=== PATIENT | female | born 1975 | race Caucasian/White ===

== ENCOUNTER 2019-10-18 10:00 | Outpatient (RCR) | payer BC, SELFPAY ==
[2019-09-18 15:05] VITALS: BP_SYST 90
--- NOTE | 2019-09-18 16:30 | PTOPEVAL ---
Thank you for referring Kusum Aceves to [facility]. Please review, sign, date and return this plan of care ELICIA. Pt referred to therapy due to left shoulder pain and restrictions. She demonstrates decreased shoulder range, shoulder and scapular strength, soft tissue restriction and impaired UE function with ADL's. She requires additional skilled PT 2x/wk x 8 wk. I agree with and certify that the following plan of care is medically necessary. 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 She had pain for a long time. She would have numbness, acheness and abnormal sensation of left UE. 6 months ago she started having left UE pain and symptoms. She purchased a TENS unit in Apr for the pain. By end of June she was having severe pain. She was seen by a chiro for neck adjustments which did help and isolate the pain into her shoulder. She started doing stretching, then released her arm was not moving in normal range. she reports limitations with reaching overhead and behind back. Denies problem with lifting and carrying at waist level, but has difficulty with lifting overhead. She normally sleeps on her left side. Does not perform resistance or cardio p
[2019-10-18 10:03] VITALS: BP_SYST 63
--- NOTE | 2019-10-18 10:43 | PTOPEVAL ---
Thank you for referring Kusum Aceves to [facility]. Please review, sign, date and return this plan of care ELICIAJohn Pt has received 9 therapy visits since 09/18/19 to address left shoulder impairments. She demonstrates a decline or limited progress with shoulder function, shoulder strength or range. Therapy services do not appear to be improving her impairments. She demonstrates signs and symptoms consistent with possible internal derangement of shoulder joint with adhesive capsulitis. She requires additional testing by the doctor to determine cause of limitations. Will hold therapy services at this time. I agree with and certify that the following plan of care is medically necessary. Referring Physician Date Attending Provider: Eleazar Mei MD Physical Therapy re-assessment *PT Outpatient Evaluation Start: 09/18/19 15:11 Freq: Status: Active Protocol: Document 10/18/19 10:03 DMITRI (Rec: 10/18/19 10:41 [facility] [email or web address]) Therapy Assessment Status Assessment Status Assessment Status Re-evaluation Outpatient Past Medical History Past Medical History No Past Medical/Surgical History Patient/Family Denies Significant Past Medical/ Surgical History Source of Past Medical History Patient Evaluation Information Problem Diagnosis left shoulder pain Onset 10 years ago Cause fall 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 10 years she slipped on steps and grabed the railing with the arm. She had pain for a long time. She would have numbness, acheness and abnormal sensation of left UE. Subjective Information She continues to have shoulder Query Text:As Reported By Patient/ pain at rest and with Family activities. She will have occasional sharp shooting pain for unknown reason. She is taking medication to assist with sleep, but will wake with increased pain depending on the position. She cont to feel the shoulder is very limited with range with continued pain. She does feel the ant chest opens easier and improved neck stretch. She reports continued limitations with reaching overhead and behind
--- NOTE | 2019-11-15 10:41 | PCPTNOTE ---
Admitting Provider: Attending Provider: Eleazar Mei MD Patient:Kusum Aceves Date of :1975 Discharge Note Patient has not returned for any further treatments since 10/18/2019, therefore she will be discharged at this time. Patient?s initial visit was on 09/18/2019 15:00 and (he/she) had a total of 9 visits. Pt was instructed on her last re-assessment visit to return to her doctor due to limited progress and continued impairments. The goals have been not met. Thank you for referring this patient to [facility]. Please review, sign, date and return this discharge summary ELICIA. I have been updated about the patient's current status and I agree with discharge from the above service at this time. Referring Physician Date
== END 2019-11-16 12:49 | disposition home or self-care (01) ==
LOC: ANHPT 10:00
PROVIDERS: Visit Provider Orthopaedic Surgery
DX: M25.512 Pain in left shoulder (principal)
CPT/HCPCS: 97035; 97110; 97140; 97161

== ENCOUNTER 2019-10-27 15:12 | Outpatient (CLI) | payer BC, SELFPAY ==
--- NOTE | ~2019-10-27 | MM_ITS ---
EXAMINATION: MM screening [facility] BI w breana HISTORY: Screening mammogram TECHNIQUE: Craniocaudal and mediolateral oblique 3-D tomosynthesis images were obtained and synthetic 2-D images were generated. CAD analysis was submitted and interpreted. COMPARISON: 07/20/2018, 06/01/2017, 05/13/2016 BREAST PARENCHYMAL COMPOSITION: The breasts are heterogeneously dense, which may obscure small masses . FINDINGS: RIGHT BREAST: There is no evidence of suspicious mass, calcification, or architectural distortion to suggest malignancy. There has been no significant interval change. LEFT BREAST: An asymmetry is present in the posterior third of the breast best appreciated 10 cm from the nipple on mediolateral oblique tomosynthesis image 14/54. IMPRESSION: 1. Right breast asymmetry on the mediolateral oblique view. 2. Additional mammographic views and possible breast ultrasound are recommended. BI-RADS Category 0: Incomplete: Needs additional imaging evaluation. Reviewed, dictated and finalized at location A. IMPRESSION: 1. Right breast asymmetry on the mediolateral oblique view. 2. Additional mammographic views and possible breast ultrasound are recommended . BI-RADS Category 0: Incomplete: Needs additional imaging evaluation.
== END 2019-10-27 15:13 | disposition home or self-care (01) ==
LOC: ANHIMG 15:21
PROVIDERS: PCP Obstetrics & Gynecology; Visit Provider Obstetrics & Gynecology
DX: Z12.31 Encounter for screening mammogram for malignant neoplasm of breast (principal); R92.8 Other abnormal and inconclusive findings on diagnostic imaging of breast
CPT/HCPCS: 77063; 77067

== ENCOUNTER 2019-10-29 10:33 | Outpatient (CLI) | payer BC, SELFPAY ==
--- NOTE | ~2019-10-29 | MR_ITS ---
EXAMINATION: MR shoulder LT wo con DATE: 10/29/2019 11:58 INDICATION: Left shoulder pain. TECHNIQUE: Magnetic resonance imaging (MRI) of the left shoulder was performed without intravenous co ntrast. Sequences included axial PD-weighted FS FSE, coronal oblique PD-weighted FS FSE and T2-weight ed FS FSE, and sagittal oblique T2-weighted FS FSE and T1-weighted FSE. COMPARISON: Left shoulder radiographs 09/11/2019 FINDINGS: Coracoacromial arch: The acromion undersurface is curved in morphology (type II). There is mild acromioclavicular joint os teoarthritis. There is mild subacromial/subdeltoid bursitis. Rotator cuff: There is severe supraspinatus tendinopathy and mild infraspinatus tendinopathy. Teres minor tendon is normal. There is mild subscapularis tendinopathy. No tear. There is no asymmetric fatty atrophy of t he rotator cuff muscle bellies. Biceps tendon and glenoid labrum: Biceps tendon is in bicipital groove. Intra-articular biceps tendon is normal. There is degeneration of the superior glenoid labrum without well-defined tear. Fluid: There is no glenohumeral joint effusion. Bones/cartilage: Glenoid cartilage is normal. Humeral head cartilage is normal. IMPRESSION: 1. Severe rotator cuff tendinopathy. No tear. 2. Mild subacromial/subdeltoid bursitis. 3. Mild acromioclavicular joint osteoarthritis. Reviewed, dictated and finalized at location A.
== END 2019-10-29 10:34 | disposition home or self-care (01) ==
PROVIDERS: PCP Obstetrics & Gynecology; Visit Provider Orthopaedic Surgery
DX: M75.52 Bursitis of left shoulder (principal); M19.012 Primary osteoarthritis, left shoulder
CPT/HCPCS: 73221

== ENCOUNTER 2019-11-21 11:23 | Outpatient (CLI) | payer BC, SELFPAY ==
--- NOTE | ~2019-11-21 | MMUS_ITS ---
EXAMINATION: MM diagnostic mammo unilat RT, US breast RT complete HISTORY: Follow-up right breast asymmetry TECHNIQUE: Additional 3-D tomosynthesis images of the right breast were performed and synthetic 2-D i mages were generated. CAD analysis was submitted and interpreted. High resolution right breast ultras ound was performed. COMPARISON: 10/27/2019 BREAST PARENCHYMAL COMPOSITION: The breasts are extremely dense, which lowers the sensitivity of mamm ography. FINDINGS: MAMMOGRAPHIC FINDINGS: There are no suspicious masses, calcifications or architectural distortion in the right breast to sug gest malignancy. ULTRASOUND: Right breast ultrasound: At 6:00 there is a 2 mm cyst. At 9:00, 3 cm from the nipple, there is a 5 mm cyst. At 10:00, 6 cm fro m the nipple, there is an oval benign-appearing hypoechoic mass with internal septations, measuring u p to 6 mm. There is parallel orientation, no significant posterior features and no internal vasculari ty. This may represent a cluster of microcysts. At 11:00, 7 cm from the nipple, there is a small 2 mm cyst. IMPRESSION: 1. No mammographic or sonographic evidence for malignancy in the right breast. 2. Routine yearly screening mammogram and regular clinical breast examination are recommended. BI-RADS Category 2: Benign finding(s). Reviewed, dictated and finalized at location A. IMPRESSION: 1. No mammographic or sonographic evidence for malignancy in the right breast. 2. Routine yearly screening mammogram and regular clinical breast examination a re recommended. BI-RADS Category 2: Benign finding(s).
== END 2019-11-21 11:24 | disposition home or self-care (01) ==
PROVIDERS: PCP Obstetrics & Gynecology; Visit Provider Obstetrics & Gynecology
DX: R92.8 Other abnormal and inconclusive findings on diagnostic imaging of breast (principal)
CPT/HCPCS: 76641; 77065

== ENCOUNTER 2019-11-29 02:38 | Outpatient (CLI) | payer BC, SELFPAY ==
[2019-11-29 18:39] LABS: SARS-CoV-2 RNA PCR Negative
== END 2019-11-29 02:39 | disposition home or self-care (01) ==
LOC: ANHCOVIDDT 02:38
PROVIDERS: PCP Obstetrics & Gynecology; Visit Provider Orthopaedic Surgery
DX: Z01.812 Encounter for preprocedural laboratory examination (principal); Z20.828 Contact with and (suspected) exposure to other viral communicable diseases
CPT/HCPCS: 87635; C9803; U0003

== ENCOUNTER 2019-11-29 08:34 | Outpatient (CLI) | payer BC, SELFPAY ==
[2019-11-29 09:18] LABS: Hematocrit 34.6 % (37.0-47.0); Hemoglobin 11.9 g/dL (12.0-15.0); Mean Corpuscular HGB Conc 34.4 g/dl (32-36); Mean Corpuscular Hemoglobin 32.4 pg (26-34); Mean Corpuscular Volume 94.3 fl (80-100); Mean Platelet Volume 9.9 fl (7.4-10.4); Platelet Count Result 197 k/mm3 (150-375); Red Blood Count 3.67 M/mm3 (4.2-5.4); Red Cell Distribution Width 11.8 % (11.5-14.5)
[2019-11-29 10:09] LABS: Vitamin D 25 Hydroxy 47.9 ng/mL
[2019-11-29 11:08] LABS: Alanine Aminotransferase 12 U/L (4-35); Albumin Level 4.3 g/dL (3.5-5.1); Alkaline Phosphatase 40 U/L (38-126); Anion Gap 6 mmol/L (8-16); Aspartate Amino Transferase 21 U/L (14-36); Bilirubin,Total 0.2 mg/dL (0.2-1.3); Blood Urea Nitrogen 17 mg/dL (7-17); Calcium 9.1 mg/dL (8.4-10.2); Carbon Dioxide 28 mmol/L (22-30); Chloride 107 mmol/L (98-107); Estimated Glomerular Filt Rate > 60; Glucose 84 mg/dL (65-105); Potassium 4.1 mmol/L (3.4-5.0); Sodium 141 mmol/L (137-145)
[2019-11-29 12:59] LABS: Folic Acid 5.3 ng/mL (2.76->20)
[2019-12-02 12:36] LABS: Vitamin B1 10 nmol/L (8-30)
== END 2019-11-29 08:35 | disposition home or self-care (01) ==
PROVIDERS: PCP Obstetrics & Gynecology
DX: R63.4 Abnormal weight loss (principal); R53.83 Other fatigue; E66.01 Morbid (severe) obesity due to excess calories; D64.9 Anemia, unspecified; K91.2 Postsurgical malabsorption, not elsewhere classified; Z98.84 Bariatric surgery status
CPT/HCPCS: 36415; 80053; 82306; 82607; 82728; 82746; 84425; 84443; 85027

== ENCOUNTER 2019-12-01 00:38 | Day surgery (SDC) | payer BC, SELFPAY ==
[2019-11-15 08:10] VITALS: BMI 25.8
[2019-12-01] VITALS (7 sets, daily range): BP systolic 101–135; BP diastolic 65–83; PULSE 73–100; RESP 11–16; TEMP 36.4–37.3; O2SAT 98–100
--- NOTE | 2019-12-01 07:14 | WPDHPUPDATE1 ---
History and Physical Update Update Date/Time: 12/01/19 07:14 History and Physical has been reviewed, including an updated exam of the patient. There are NO changes in the patient's condition. Risks, benefits, and alternatives have been discussed and questions answered. Patient agrees to proceed with procedure.
[2019-12-01] MEDS: LACTATED RINGERS 1,000 ML 30 ML IV CONT ×2 (11:00→14:52)
[2019-12-01] MEDS: ACETAMINOPHEN 500 MG TABLET 1000 MG PO (11:07)
[2019-12-01] MEDS: KETOROLAC 15 MG/ML VIAL (*BKC) IV PUSH (11:08)
--- NOTE | 2019-12-01 11:16 | WPDANESEPPF ---
Anes - Initial Pre Proc Eval Procedure: Operation Date: 12/01/19 12:30 Proposed Procedures p Left Shoulder Arthroscopic Subacromial Decompression - Eleazar Mei MD Date/Time: 12/01/19 11:16 Surgeon: Eleazar Mei MD Pre Op Diagnosis: Left Shoulder Subacromial Tendonitis Patient Data Age: 44 Gender: F Height: 5 ft 6 in Weight: 71.3 kg Allergies Allergy/AdvReac Type Severity Reaction Status Date / Time Sulfa (Sulfonamide Allergy Unknown Hives Verified 12/01/19 11:13 Antibiotics) Home Medications Medication Instructions Recorded Confirmed Type hihtvglgfp-pneoiqapwguuo-lxxcitdf 1 cap PO Q8H PRN 09/11/19 12/01/19 History 50 mg-300 mg-40 mg capsule cholecalciferol (vitamin D3) 125 125 mcg PO DAILY 09/11/19 12/01/19 History mcg (5,000 unit) capsule multivitamin 1 cap PO DAILY 09/11/19 12/01/19 History sertraline 100 mg tablet 100 mg PO DAILY 09/11/19 12/01/19 History sertraline 50 mg tablet 50 mg PO DAILY 09/11/19 12/01/19 History cyclobenzaprine 10 mg tablet 10 mg PO TID PRN #30 tablet 09/27/19 12/01/19 Rx hydrocodone 5 mg-acetaminophen 325 1 - 2 tablet PO Q6H PRN #30 tablet 10/26/19 12/01/19 Rx mg tablet MDD 6 cyanocobalamin (vitamin B-12) 1,000 mcg IM MONTHLY 11/15/19 12/01/19 History levonorgestrel [Mirena] 1 device INTRAUTERINE ONCE 11/15/19 12/01/19 History Patient hx anesthesia problems: none Family hx anesthesia problems: none PMFSH Past Medical History Medical History Anxiety Hx of migraines Subacromial tendonitis of left shoulder Surgical History Surgical History History of (~2003) History of (~2007) History of gastric restrictive surgery (~2015) Family History Family History Mother Arthritis Father Diabetes mellitus Social History Social History Smoking status: Never smoker Alcohol intake: current Drinks per week: 1 Substance use: never Spiritual care concerns: No Anes - Eval Final PreProcedure Day of Procedure 12/01/19 11:16 Patient weight: normal Heart: regular rate and rhythm Lungs: clear to auscultation Airway: Mallampati scale class 1 Neurological: alert and oriented Last oral intake: >/= 8 hours ASA classification: II Emergent: no Anesthetic plan: proceed Anesthesia type and monitoring: general LMA and standard monitoring Informed Consent: The patient's anesthetic plan and its attendant risks and benefits were discussed with the patient/family/POA. Questions were solicited and answers provided to the satisfaction of the patient/family/POA.
[2019-12-01] MEDS: ceFAZolin 2 GM/D5W 50 ML 2 GM/50 ML BAG IVPB (13:24)
--- NOTE | 2019-12-01 13:31 | WPDANESPNB ---
Anes - Peripheral Nerve Block Date/Time: 12/01/19 13:31 I have discussed with the patient/family/POA the placement of a peripheral nerve block for post-operative pain management, including associated risks, benefits, complications, and side effects. Alternative methods of post-operative analgesia were detailed. Questions were solicited and answers provided to the satisfaction of the patient/family/POA. Time-Out: A pre-procedural Time-Out was completed immediately before starting the procedure and confirmed: Patient Identification, Site, Procedure, Patient Position and the Availability of Requisite Equipment. Clinical Indications: Acute post-operative pain management requested by the operative surgeon. Nerve Block Insertion Note Anes-nerve block: interscalene left Patient position: other (sitting) Needle: 22 gauge, stimulating, insulated echogenic needle. Needle length: 50 mm Technique: nerve stimulation lost at (mA) (0.21) and ultrasound Injectate: bupivacaine 0.5% with epi 5 mcg/ml (30ml) and dexamethasone (mg) (4) Observations: tolerated well Complications: none Procedure start time:: 1310 Procedure end time:: 1320
[2019-12-01] MEDS: MEPERIDINE HCL INJ 50 MG/ML AMPUL 25 MG IV PUSH (15:16)
--- NOTE | 2019-12-01 15:26 | SUR.PHASEI ---
1515 PT SHAKING EVEN AFTER ANDIE HUGGER APPLIED; TEMP 99.2; PT DENIES FEELING COLD. DR. YADAV CALLED WHO ORDERED DEMEROL 25 MG IV TO BE GIVEN. 1525 LESS SHAKING NOTED; PT STATES SHE'S SHAKING LESS.
--- NOTE | 2019-12-01 16:35 | P.OP_ITS ---
Procedure Note - Detailed Date of procedure: 12/01/19 Pre-op diagnosis: Left Shoulder Subacromial Tendonitis Post-op diagnosis: other ( 1. Left shoulder supraspinatus rotator cuff tendinitis with subacromial impingement. 2. Adhesive capsulitis.) Procedure performed: 1. Arthroscopic capsular release with manipulation under anesthesia. 2. Arthroscopic subacromial decompression. Anesthesia: GETA Surgeon: Eleazar Mei MD Estimated blood loss (mL): 10 Complications: None Condition: stable Disposition: PACU Findings: Operative details: The patient was given an interscalene block in the holding area. Preoperative antibiotics were given. The patient was brought to the operating room. Careful positioning in the beach chair was accomplished. The head neck were carefully positioned. A small bump was placed under the left shoulder. The shoulder was examined. She was clearly tight. External rotation was limited the 20?. Elevation 70?. A manipulation was performed. Motion was greatly improved. After capsule release of the anterior capsule arthroscopi brody, motion was 140? passive elevation, external rotation 60? passively and internal rotation 2, 60?. The shoulder was prepped and draped in the usual sterile fashion. Standard posterior and anterior arthroscopic portals were established. The shoulder was inspected. The articular cartilage was normal. Shoulder was only mildly tight at this point. Significant capsulitis was identified. The rotator cuff was hyperemic. I release of the anterior capsule was performed in front of the subscapularis. This provided significant improvement in the space between the humerus and glenoid. No significant contracture was identified posteriorly or inferiorly. Attention was turned to the subacromial space. A complete bursectomy was performed. An accessory lateral portal was created. The rotator cuff showed mild softening and inflammatory changes, but no tearing. The acromion was clearly visualized. The coracoacromial ligament was released. Careful acromioplasty was performed utilizing views from both lateral and posterior. Loose bone fragments were carefully irrigated from the joint. The arthroscopic instruments were removed. The wounds were closed with interrupted 3-0 Monocryl suture followed by Steri- Strips. A sterile dressing was applied with a sling. The patient was extubated and brought to the recovery room in stable condition. There were no complications.
== END 2019-12-01 16:35 | disposition home or self-care (01) ==
PROVIDERS: PCP Obstetrics & Gynecology; Visit Provider Orthopaedic Surgery
PROC: (CPT 29805; principal; 2019-12-01 12:30)
DX: M75.42 Impingement syndrome of left shoulder (principal); M75.82 Other shoulder lesions, left shoulder; M75.02 Adhesive capsulitis of left shoulder; G89.18 Other acute postprocedural pain
CPT/HCPCS: 29825; 29822; 64450; A4565; A9270; J0690; J1100; J1885; J2175; J2250; J2405; J2704; J3010; J7120

== ENCOUNTER 2020-02-07 12:45 | Outpatient (RCR) | payer BC, SELFPAY ==
--- NOTE | 2019-12-17 21:22 | PTOPEVAL ---
Thank you for referring Kusum Aceves to [facility].? The patient is scheduled to be seen for therapy? 2-3 x/week for 6 weeks. Please review, sign, date and return this plan of care ELICIA. I agree with and certify that the following plan of care is medically necessary. Referring Physician Date Attending Provider: Eleazar Mei MD *PT Outpatient Evaluation Start: 12/15/19 12:44 Freq: Status: Active Protocol: Document 12/15/19 12:46 DMITRI (Rec: 12/15/19 13:32 CAP [id number]) Therapy Assessment Status Assessment Status Assessment Status Evaluation Outpatient Past Medical History Past Medical History Source of Past Medical History Patient,Recalled from Previous Visit, Confirmed with Patient /Family Neurological History Hx Migraine Yes Cardiovascular History Hx Cardiac Disorders No Significant History Respiratory History Hx Respiratory Disorders No Significant History Gastrointestinal History Hx Other Gastrointestinal Disorders Yes: GASTRIC SLEEVE- 2016 Genitourinary History Hx Genitourinary Disorders No Significant History Musculoskeletal History Hx Orthopedic Surgery Yes: s/p arthroscopic SAD 11/30 Hx Other Musculoskeletal Disorders Yes: LT SHOULDER SUBACROMIAL TENDONITIS Hematological History Hx Hematological Disorders No Significant History Endocrine History Hx Endocrine Disorders No Significant History HEENT History Hx HEENT Disorders No Significant History Integumentary History Hx Skin Disorders No Significant History Reproductive History Hx Section Yes: X2 Hx Other Reproductive Disorders Yes: MIRENA IUD Psychosocial History Hx Anxiety Yes Hx Depression Yes Pain History History of Any Previous or Ongoing No Significant History Instance of Pain Anesthesia History Hx Anesthesia Reactions No Significant History Evaluation Information Problem Diagnosis left shoulder s/p arthroscopic SAD Onset 12/01/19 Additional Evaluation Detail Jan 10 next MD appt Subjective Information She reports she shoulder feels Query Text:As Reported By Patient/ so much better following Family surgery. She reports limitation with shoulder IR. She is using the CPM 1-2x/day. She feels min stretch with use then she did initially. She is performing towel IR stretch, wall facing slides.
--- NOTE | 2020-01-16 11:54 | PTOPEVAL ---
Thank you for referring Kusum Aceves to [facility].? The patient is scheduled to be seen for therapy? 2 x/week for 4 weeks. Please review, sign, date and return this plan of care ELICIA. I agree with and certify that the following plan of care is medically necessary. Referring Physician Date Attending Provider: Eleazar Mei MD Referring Provider: *PT Outpatient Evaluation Start: 12/15/19 12:44 Freq: Status: Active Protocol: Document 01/16/20 11:02 DMITRI (Rec: 01/16/20 11:51 [email or web address] [id number]) Therapy Assessment Status Assessment Status Assessment Status Re-evaluation Evaluation Information Problem Diagnosis left shoulder s/p arthroscopic SAD Onset 12/01/19 Additional Evaluation Detail Jan 10 next MD appt Subjective Information She reports she shoulder feels Query Text:As Reported By Patient/ so much better following Family surgery. She reports improved shoulder IR motion but slight pain and tightness with motion. She went to the chiro for an adjustment on Wednesday with ipmroved muscle tension and joint motion. She is performing all desired ADL's, IADL's and daily activities with her left arm. She denies any problems with work duties. Pain Assessment Timing of Pain Assessment Timing of Pain Assessment Re-assessment Pain Scale Pain Scale Used Numeric (1 - 10) Self Report Pain Assessment Left Shoulder(s) Reported Pain Level 0 Pain Description Tightness Lowest Pain Intensity 0 Greatest Pain Intensity 1 Pain Aggravating Factors Other Pain Aggravating Factors Other Pain Aggravating Factors reaching behind back Pain Relief Interventions Used By Exercise,Heat Patient Pain Score Pain Score 0: Self Report Upper Extremity Range of Motion Scapular/ Shoulder Range of Motion Right Shoulder Flexion - Active 168 Shoulder Extension - Active 58 Shoulder Abduction - Active 180 Shoulder Medial Rotation - Active 90 Shoulder Medial Rotation - Active T1 Query Text:Reach Behind the Back Shoulder Lateral Rotation - Active 90 Shoulder Lateral Rotation - Active T2 Query Text:Reach Behind the Head Left Scapular: Retraction Normal Scapular: Protraction Normal Scapular Downward Rotation Normal Scapular Upward Rotation Normal Shoulde
--- NOTE | 2020-02-07 13:40 | PCPTNOTE ---
Admitting Provider: Attending Provider: Eleazar Mei MD Patient:Kusum Aceves Date of :1975 Discharge Note Patient has received 17 therapy visits from 12/15/19-02/07/20 to address her left shoulder impairments. She demonstrate normal shoulder range and strength, improved scapular stability strength, improved scapulothrocic and GH joint motion pattern with reaching activities. She is indep with her HEP and verbalizes understanding for pressing her program. She has achieved her therapy goals at this time. Will DC skilled therapy services at this time. Thank you for referring this patient to [facility]. Please review, sign, date and return this discharge summary ELICIA. I have been updated about the patient's current status and I agree with discharge from the above service at this time. Referring Physician Date
== END 2020-02-28 15:20 | disposition home or self-care (01) ==
LOC: ANHPT 12:45
PROVIDERS: PCP Obstetrics & Gynecology; Visit Provider Orthopaedic Surgery
DX: Z48.89 Encounter for other specified surgical aftercare (principal)
CPT/HCPCS: 97110; 97140; 97162

== ENCOUNTER 2020-08-30 10:32 | Outpatient (CLI) | payer BC, SELFPAY ==
[2020-08-30 10:55] LABS: Hematocrit 35.6 % (37.0-47.0); Mean Corpuscular HGB Conc 33.7 g/dl (32-36); Mean Corpuscular Hemoglobin 31.4 pg (26-34); Mean Corpuscular Volume 93.2 fl (80-100); Platelet Count Result 222 k/mm3 (150-375); Red Blood Count 3.82 M/mm3 (4.2-5.4); White Blood Count 4.7 K/mm3 (4.5-10.0)
[2020-08-30 11:05] LABS: Cholesterol 223 mg/dL (0-200); HDL Direct 75 mg/dL; Triglycerides 60 mg/dL (<150)
[2020-08-30 11:07] LABS: Alanine Aminotransferase 12 U/L (4-35); Albumin Level 4.4 g/dL (3.5-5.1); Alkaline Phosphatase 46 U/L (38-126); Anion Gap 2 mmol/L (8-16); Aspartate Amino Transferase 24 U/L (14-36); Bilirubin,Total 0.6 mg/dL (0.2-1.3); Blood Urea Nitrogen 20 mg/dL (7-17); Calcium 9.3 mg/dL (8.4-10.2); Carbon Dioxide 31 mmol/L (22-30); Chloride 106 mmol/L (98-107); Estimated Glomerular Filt Rate > 60; Glucose 89 mg/dL (65-105); Potassium 4.2 mmol/L (3.4-5.0); Sodium 139 mmol/L (137-145)
[2020-08-30 11:17] LABS: LDL Cholesterol Direct 105 mg/dL
[2020-08-30 12:12] LABS: Folic Acid 8.2 ng/mL (2.76->20)
[2020-08-30 13:24] LABS: Iron 156 ug/dL (37-170)
[2020-08-30 13:37] LABS: Vitamin D 25 Hydroxy 59.8 ng/mL
== END 2020-08-30 10:33 | disposition home or self-care (01) ==
PROVIDERS: PCP Family Medicine; Visit Provider Family Medicine
DX: Z13.220 Encounter for screening for lipoid disorders (principal); R63.4 Abnormal weight loss; R61 Generalized hyperhidrosis; E66.01 Morbid (severe) obesity due to excess calories; D64.9 Anemia, unspecified; K91.2 Postsurgical malabsorption, not elsewhere classified; Z98.84 Bariatric surgery status
CPT/HCPCS: 36415; 80053; 80061; 82306; 82607; 82728; 82746; 83540; 84425; 84443; 85027

== ENCOUNTER 2020-11-02 08:08 | Outpatient (CLI) | payer BC, SELFPAY ==
--- NOTE | ~2020-11-02 | MM_ITS ---
EXAMINATION: MM screening [facility] BI w breana HISTORY: Screening mammogram TECHNIQUE: Craniocaudal and mediolateral oblique 3-D tomosynthesis images were obtained and synthetic 2-D images were generated. CAD analysis was submitted and interpreted. COMPARISON: 11/21/2019 diagnostic right mammogram and complete right breast ultrasound 10/27/2019, 07/20/2018, 06/01/2007 bilateral digital screening mammogram examinations BREAST PARENCHYMAL COMPOSITION: The breasts are heterogeneously dense, which may obscure small masses . FINDINGS: There is no evidence of suspicious mass, calcification, or architectural distortion to sugg est malignancy in either breast. There has been no suspicious interval change. IMPRESSION: 1. No mammographic evidence of malignancy. 2. Recommend routine screening mammography in one year. BI-RADS Category 1: Negative Reviewed, dictated and finalized at location A.
== END 2020-11-02 08:09 | disposition home or self-care (01) ==
PROVIDERS: PCP Family Medicine; Visit Provider Obstetrics & Gynecology
DX: Z12.31 Encounter for screening mammogram for malignant neoplasm of breast (principal)
CPT/HCPCS: 77063; 77067

== ENCOUNTER 2021-10-28 16:31 | Outpatient (CLI) | payer BC, SELFPAY ==
[2021-10-28 17:20] LABS: Hematocrit 36.5 % (37.0-47.0); Hemoglobin 12.1 g/dL (12.0-15.0); Mean Corpuscular HGB Conc 33.2 g/dl (32-36); Mean Corpuscular Hemoglobin 31.4 pg (26-34); Mean Corpuscular Volume 94.8 fl (80-100); Mean Platelet Volume 10.1 fl (7.4-10.4); Platelet Count Result 239 k/mm3 (150-375); Red Blood Count 3.85 M/mm3 (4.2-5.4); Red Cell Distribution Width 12.1 % (11.5-14.5); White Blood Count 6.4 K/mm3 (4.5-10.0)
[2021-10-28 17:36] LABS: Alanine Aminotransferase 13 U/L (6-35); Albumin Level 4.3 g/dL (3.5-5.1); Alkaline Phosphatase 49 U/L (38-126); Anion Gap 6 mmol/L (8-16); Aspartate Amino Transferase 21 U/L (14-36); Bilirubin,Total 0.3 mg/dL (0.2-1.3); Blood Urea Nitrogen 17 mg/dL (7-17); Carbon Dioxide 26 mmol/L (22-30); Chloride 107 mmol/L (98-107); Estimated Glomerular Filt Rate > 60; Glucose 88 mg/dL (65-110); Potassium 4.2 mmol/L (3.4-5.0); Sodium 139 mmol/L (137-145)
[2021-10-28 18:40] LABS: Vitamin D 25 Hydroxy 86.3 ng/mL
[2021-10-28 18:54] LABS: Iron 85 ug/dL (37-170)
[2021-10-28 19:25] LABS: Ferritin 9.77 ng/mL (6.24-137)
[2021-11-03 09:44] LABS: Vitamin B1 14 nmol/L (8-30)
== END 2021-10-28 16:32 | disposition home or self-care (01) ==
LOC: ANHLAB 16:35
PROVIDERS: PCP Family Medicine
DX: K91.2 Postsurgical malabsorption, not elsewhere classified (principal); D64.9 Anemia, unspecified; R63.4 Abnormal weight loss; R61 Generalized hyperhidrosis; Z13.818 Encounter for screening for other digestive system disorders; R53.83 Other fatigue; L65.9 Nonscarring hair loss, unspecified
CPT/HCPCS: 36415; 80053; 82306; 82607; 82728; 82746; 83540; 84425; 84443; 85027

== ENCOUNTER 2022-01-20 10:29 | Outpatient (CLI) | payer BC, SELFPAY ==
--- NOTE | ~2022-01-20 | MM_ITS ---
Corrected Report Correction to Ordering Provider 01/20/2022 VICKI This report was recreated on 01/20/2022. Original report was signed by Carroll Pagan M.D. on 01/20/2022 11:16 CDT. EXAMINATION: MM screening [facility] BI w breana HISTORY: Screening TECHNIQUE: Craniocaudal and mediolateral oblique 3-D tomosynthesis images were obtained and synthetic 2-D images were generated. CAD analysis was submitted and interpreted. COMPARISON: Comparison to multiple prior studies sequentially, with oldest reviewed study dated 05/13/2016. BREAST PARENCHYMAL COMPOSITION: The breasts are heterogeneously dense, which may obscure small masses FINDINGS: There are subtle asymmetries in the upper inner quadrant of the left breast posteriorly. There is no evidence of suspicious mass, calcification, or architectural distortion to suggest malignancy in the right breast. IMPRESSION: 1. Developing left breast asymmetries, upper inner quadrant posteriorly. 2. Additional mammographic views and possible breast ultrasound are recommended. BI-RADS Category 0: Incomplete: Needs additional imaging evaluation. Reviewed, dictated and finalized at location A. MTDD IMPRESSION: 1. Developing left breast asymmetries, upper inner quadrant posteriorly. 2. Additional mammographic views and possible breast ultrasound are recommended . BI-RADS Category 0: Incomplete: Needs additional imaging evaluation.
== END 2022-01-20 10:30 | disposition home or self-care (01) ==
PROVIDERS: PCP Family Medicine; Visit Provider Obstetrics & Gynecology
DX: Z12.31 Encounter for screening mammogram for malignant neoplasm of breast (principal); R92.8 Other abnormal and inconclusive findings on diagnostic imaging of breast
CPT/HCPCS: 77063; 77067

== ENCOUNTER 2022-02-04 12:05 | Outpatient (CLI) | payer BC, SELFPAY ==
--- NOTE | ~2022-02-04 | MMUS_ITS ---
EXAMINATION: MM diagnostic maxime LT w breana, US breast LT limited HISTORY: Focal asymmetry of the left breast on screening mammogram TECHNIQUE: Additional 3-D tomosynthesis images of the left breast were performed and synthetic 2-D im ages were generated. CAD analysis was submitted and interpreted. High resolution limited left breast ultrasound was performed. COMPARISON: 01/20/2022, 11/02/2020, 10/27/2019, 07/20/2018 FINDINGS: MAMMOGRAPHIC FINDINGS: There is focal asymmetry in the posterior third of the upper inner quadrant of the left breast at the 11:00 location which appears to have a somewhat waxing and waning appearance when compared to prior mammograms. ULTRASOUND: There is no evidence of focal abnormal solid or cystic mass in the vicinity of the mammographic findi ng in question. IMPRESSION: 1. Probably benign focal asymmetry of the left breast. 2. Recommend 6 month follow-up left diagnostic mammogram and possible ultrasound. BI-RADS category 3, probably benign findings. Reviewed, dictated and finalized at location A. IMPRESSION: 1. Probably benign focal asymmetry of the left breast. 2. Recommend 6 month follow-up left diagnostic mammogram and possible ultrasoun d. BI-RADS category 3, probably benign findings.
== END 2022-02-04 12:06 | disposition home or self-care (01) ==
PROVIDERS: PCP Family Medicine; Visit Provider Obstetrics & Gynecology
DX: R92.8 Other abnormal and inconclusive findings on diagnostic imaging of breast (principal)
CPT/HCPCS: 76642; 77061; 77065; G0279

== ENCOUNTER 2022-05-07 09:58 | Outpatient (CLI) | payer BC, SELFPAY ==
[2022-05-07 10:40] LABS: Basophils Percent Auto 0.8 % (0.2-1.2); Eosinophils Absolute Auto 0.2 K/mm3 (0-0.3); Eosinophils Percent Auto 3.3 % (0-4.4); Hematocrit 36.1 % (37.0-47.0); Hemoglobin 12.5 g/dL (12.0-15.0); Immature Granulocyte Absolute 0.01 K/mm3 (0.00-0.031); Immature Granulocyte Percent A 0.2 % (0-0.5); Lymphocytes Absolute Auto 1.41 K/mm3 (0.9-3.2); Lymphocytes Percent Auto 29.3 % (18.3-44.2); Mean Corpuscular HGB Conc 34.6 g/dl (32-36); Mean Corpuscular Hemoglobin 31.5 pg (26-34); Mean Corpuscular Volume 90.9 fl (80-100); Mean Platelet Volume 10.3 fl (7.4-10.4); Monocytes Absolute Auto 0.5 K/mm3 (0.1-0.6); Neutrophils Absolute Auto 2.7 K/mm3 (1.3-6.7); Neutrophils Percent Auto 55.4 % (45.5-73.1); Platelet Count Result 205 k/mm3 (150-375); Red Blood Count 3.97 M/mm3 (4.2-5.4); White Blood Count 4.8 K/mm3 (4.5-10.0)
[2022-05-07 10:50] LABS: Cholesterol 213 mg/dL (0-200); HDL Direct 67 mg/dL; Triglycerides 74 mg/dL (<150)
[2022-05-07 11:01] LABS: LDL Cholesterol Direct 100 mg/dL
== END 2022-05-07 09:59 | disposition home or self-care (01) ==
LOC: ANHLAB 09:59
PROVIDERS: PCP Family Medicine; Visit Provider Physician Assistant Medical
DX: D64.9 Anemia, unspecified (principal); Z13.220 Encounter for screening for lipoid disorders
CPT/HCPCS: 36415; 80061; 85025

== ENCOUNTER 2022-08-18 11:09 | Outpatient (CLI) | payer BC, SELFPAY ==
--- NOTE | ~2022-08-18 | MMUS_ITS ---
EXAMINATION: MM diagnostic maxime LT w breana, US breast LT limited HISTORY: Six-month follow-up for probably benign focal asymmetry of the left breast TECHNIQUE: Craniocaudal, mediolateral, and mediolateral oblique 3-D tomosynthesis images of the left breast were performed and synthetic 2-D images were generated. CAD analysis was submitted and interpr eted. High resolution limited left breast ultrasound was performed. COMPARISON: 02/04/2022, 01/20/2022, 11/02/2020, 10/27/2019 BREAST PARENCHYMAL COMPOSITION: The breasts are heterogeneously dense, which may obscure small masses . FINDINGS: MAMMOGRAPHIC FINDINGS: Again seen is a stable focal asymmetry in the posterior third of the upper inner quadrant of the left breast at the 11:00 location. No suspicious calcification or architectural distortion are identified . ULTRASOUND: There is no evidence of focal abnormal solid or cystic mass in the vicinity of the mammographic findi ng in question. IMPRESSION: 1. Probably benign focal asymmetry of the left breast. 2. Recommend 6 month follow-up left diagnostic mammogram and possible ultrasound. BI-RADS category 3, probably benign findings. Reviewed, dictated and finalized at location A. IMPRESSION: 1. Probably benign focal asymmetry of the left breast. 2. Recommend 6 month follow-up left diagnostic mammogram and possible ultrasoun d. BI-RADS category 3, probably benign findings.
== END 2022-08-18 11:10 | disposition home or self-care (01) ==
LOC: ANHIMG 11:10
PROVIDERS: PCP Family Medicine; Visit Provider Obstetrics & Gynecology
DX: R92.8 Other abnormal and inconclusive findings on diagnostic imaging of breast (principal)
CPT/HCPCS: 76642; 77061; 77065; G0279

== ENCOUNTER 2023-03-09 13:12 | Outpatient (CLI) | payer BC, SELFPAY ==
--- NOTE | ~2023-03-09 | MMUS_ITS ---
EXAMINATION: MM diagnostic maxime BI w breana, US breast LT complete HISTORY: Six-month follow-up of probably benign focal asymmetry of left breast reported on 08/18/2022 d iagnostic mammogram TECHNIQUE: Bilateral full field and left spot ML, MLO and CC 3-D tomosynthesis images were performed and synthetic 2-D images were generated. CAD analysis was submitted and interpreted. High resolution complete left breast ultrasound examination including all 4 quadrants and subareolar area was perform ed. COMPARISON: 08/28/2022 diagnostic left mammogram and limited left breast ultrasound 02/04/2022 diagnostic left mammogram and limited left breast ultrasound 01/20/2022, 10/29/2020 bilateral screening mammogram examinations BREAST PARENCHYMAL COMPOSITION: The breasts are heterogeneously dense, which may obscure small masses . FINDINGS: MAMMOGRAPHIC FINDINGS: No suspicious mass or architectural distortion, malignant calcification, skin thickening or retractio n or significant new or developing density is detected. ULTRASOUND: No suspicious mass or shadowing, cyst or other significant sonographic abnormality of the left breast is detected. IMPRESSION: 1. No evidence of malignancy 2. Routine annual mammographic screening is recommended BI-RADS Category 1: Negative Reviewed, dictated and finalized at location A. THESIOLOGY RESIDENT IMPRESSION: 1. No evidence of malignancy 2. Routine annual mammographic screening is recommended BI-RADS Category 1: Negative
== END 2023-03-09 13:13 | disposition home or self-care (01) ==
PROVIDERS: PCP Family Medicine; Visit Provider Obstetrics & Gynecology
DX: R92.8 Other abnormal and inconclusive findings on diagnostic imaging of breast (principal)
CPT/HCPCS: 76641; 77062; 77066; G0279

== ENCOUNTER 2023-11-15 12:22 | Outpatient (CLI) | payer BC, SELFPAY ==
[2023-11-15 12:53] LABS: Hematocrit 35.5 % (37.0-47.0); Hemoglobin 12.1 g/dL (12.0-15.0); Mean Corpuscular HGB Conc 34.1 g/dl (32-36); Mean Corpuscular Hemoglobin 32.7 pg (26-34); Mean Corpuscular Volume 95.9 fl (80-100); Platelet Count Result 233 k/mm3 (150-375); Red Cell Distribution Width 11.6 % (11.5-14.5); White Blood Count 5.4 K/mm3 (4.5-10.0)
[2023-11-15 13:11] LABS: Alanine Aminotransferase 14 U/L (6-35); Albumin Level 4.3 g/dL (3.5-5.1); Alkaline Phosphatase 51 U/L (38-126); Anion Gap 6 mmol/L (4-12); Aspartate Amino Transferase 25 U/L (14-36); Bilirubin,Total 0.5 mg/dL (0.2-1.3); Blood Urea Nitrogen 18 mg/dL (7-17); Calcium 8.9 mg/dL (8.4-10.2); Carbon Dioxide 28 mmol/L (22-30); Chloride 103 mmol/L (98-107); Estimated Glomerular Filt Rate > 60; Glucose 89 mg/dL (65-110); Sodium 137 mmol/L (137-145)
[2023-11-15 13:32] LABS: Iron 146 ug/dL (37-170)
[2023-11-15 13:49] LABS: Vitamin D 25 Hydroxy 81.5 ng/mL
[2023-11-15 14:01] LABS: Vitamin B12 > 1000.0 pg/mL (239-931)
[2023-11-18 08:54] LABS: Vitamin B1 6 nmol/L (8-30)
== END 2023-11-15 12:23 | disposition home or self-care (01) ==
PROVIDERS: PCP Family Medicine
DX: R63.4 Abnormal weight loss (principal); E66.01 Morbid (severe) obesity due to excess calories; Z68.26 Body mass index [BMI] 26.0-26.9, adult; D64.9 Anemia, unspecified; R53.83 Other fatigue; K91.2 Postsurgical malabsorption, not elsewhere classified; Z98.84 Bariatric surgery status; Z13.818 Encounter for screening for other digestive system disorders
CPT/HCPCS: 36415; 80053; 82306; 82607; 82728; 83540; 84425; 84443; 85027

== ENCOUNTER 2023-12-21 08:37 | Outpatient (CLI) | payer BC, SELFPAY ==
[2023-12-21 13:37] LABS: Cholesterol 223 mg/dL (0-200); HDL Direct 76 mg/dL; Triglycerides 74 mg/dL (<150)
[2023-12-21 13:47] LABS: LDL Cholesterol Direct 112 mg/dL
== END 2023-12-21 08:38 | disposition home or self-care (01) ==
LOC: ANHGOSHLAB 08:39
PROVIDERS: PCP Family Medicine; Visit Provider Physician Assistant Medical
DX: E78.5 Hyperlipidemia, unspecified (principal)
CPT/HCPCS: 36415; 80061

== ENCOUNTER 2024-03-23 13:57 | Outpatient (CLI) | payer BC, SELFPAY ==
--- NOTE | ~2024-03-23 | MM_ITS ---
EXAMINATION: MM screening maxime BI w breana HISTORY: Screening TECHNIQUE: Craniocaudal and mediolateral oblique 3-D tomosynthesis images were obtained and synthetic 2-D images were generated. CAD analysis was submitted and interpreted. COMPARISON: Comparison to multiple prior studies sequentially, with oldest reviewed study dated 11/02. BREAST PARENCHYMAL COMPOSITION: Not dense: There are scattered areas of fibroglandular density. FINDINGS: There is a new focal asymmetry superiorly in the left breast on MLO view, not seen on prior examinations. There is no mammographic evidence for malignancy in the right breast. IMPRESSION: 1. New focal right breast asymmetry. 2. Additional mammographic views and possible breast ultrasound are recommended. BI-RADS Category 0: Incomplete: Needs additional imaging evaluation. Reviewed, dictated and finalized at location B. VERY DEPARTMENT SUPERVISOR IMPRESSION: 1. New focal right breast asymmetry. 2. Additional mammographic views and possible breast ultrasound are recommended . BI-RADS Category 0: Incomplete: Needs additional imaging evaluation.
== END 2024-03-23 13:58 | disposition home or self-care (01) ==
LOC: MICIMG 13:58
PROVIDERS: PCP Obstetrics & Gynecology; Visit Provider Obstetrics & Gynecology
DX: Z12.31 Encounter for screening mammogram for malignant neoplasm of breast (principal); R92.8 Other abnormal and inconclusive findings on diagnostic imaging of breast
CPT/HCPCS: 77063; 77067

== ENCOUNTER 2024-11-16 13:09 | Outpatient (CLI) | payer BC, SELFPAY ==
--- OUTSIDE RECORDS SUMMARY | 2024-11-16 13:15 | XMS_ITS | Clinical Summary ---
Author Organization [facility] Address [address] [place] [address] Care Team Providers Care Policy Specialist Name Role Phone Aquiles Conrad MD Primary Care Provider [phone] Source Comments [facility],non-owned Affiliates and Associated Physician Practices is amultiple site organization consisting of ambulatory clinics and hospital sitesin [place], [place], [place] and [place]. This disclosure is being madepursuant to the Care Everywhere program and may not contain all information available regarding this patient. Last updated 17.[facility] Allergies Active Allergy Reactions Criticality Noted Date Comments Sulfa Drugs 06/24/2009 Medications * Be aware that medications may not be up to date on this document. Alwaysverify current medications with the patient. sertraline (ZOLOFT) 100 MG tablet Take 100 mg by mouth daily. Active apap-isomethepte ne-dichloral (MIDRIN) 325-65-100 MG capsule Take 1 Cap by mouth every 4 hours as needed Active albuterol HFA (PROVENTIL;CESAR MYKE;PROAIR) 108 (90 BASE) MCG/ACT inhaler Inhale 2 Puffs by mouth every 6 hours as needed Active norgestrel-ethin yl estradiol (LO/OVRAL; LOW-OGESTREL; CRYSELLE) 0.3-30 MG-MCG tablet Take 1 Tab by mouth daily. 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 Gender Identity Not on file Sexual Orientation Not on file Last Filed Vital Signs Vital Sign Reading Time Taken Comments Blood Pressure 123/77 02/03/2013 11:23 AM CDT Pulse 73 02/03/2013 11:23 AM CDT Temperature 35.9 C (96.7 F) 05/12/2011 12:44 PM BUFFING LINE SET UP WORKER Respiratory Rate 16 10/02/2011 11:00 AM CDT Oxygen Saturation 98% 02/03/2013 11:23 AM CDT Inhaled Oxygen Concentration - - Weight 92.1 kg (203 lb) 03/14/2013 1:00 PM BUFFING LINE SET UP WORKER Height 167.6 cm (5' 6) 03/14/2013 1:00 PM BUFFING LINE SET UP WORKER Body Mass Index 32.77 03/14/2013 1:00 PM BUFFING LINE SET UP WORKER Plan of Treatment Health Maintenance Due Date Last Done Comments COLOGUARD (AGES 45-75) - COL ON CA SCREENING 1975 COLON MONITORING 1975 COLONOSCOPY - COLON CA SCREENING 1975 CT COLONOGRAPHY - COLON CA SCREENING 1975 Colorectal Cancer Screening 1975 FIT - COLON CA SCREENING 1975 FLEX SIG - COLON CA SCREENING 1975 MAMMOGRAM 1975 HIV SCREENING 1990 HEPATITIS C SCREENING 05/15/1993 DTAP/TDAP/TD VACCINES (1 - Tdap) 1994 HEPATITIS B VACCINE (1 of 3 - 19+ 3-dose series) 1994 LIPID TESTING 07/17/2014 07/17/2009 COVID-19 VACCINE ( - 2023-2 5 season) 2023 DEPRESSION SCREENING 04/12/2024 INFLUENZA VACCINE (#1) 2024 , 01/02/2022, 02/11/2021 ZOSTER VACCINE (1 of 2) 2025 HIB VACCINE Aged Out No longer eligi ble based on patient's age to complete this topic HPV VACCINE Aged Out No longer eligi ble based on patient's age to complete this topic MENINGOCOCCAL (Group B) VACCINE SHARED DECISION-MAKING Aged Out No longer eligible based on patient's age to complete this topic MENINGOCOCCAL GROUPS A/C/Y/W VACCINE Aged Out No longer eligible b ased on patient's age to complete this topic Procedures Procedure Name Priority Date/Time Associated Diagnosis Comments LIPID PROFILE Routine 07/17/2009 5:52 PM CDT Morbid Obesity from Last 3 Months or Most Recently Relevant to Health Maintenance Results * (ABNORMAL) LIPID PROFILE (07/17/2009 5:52 PM CDT) Cholesterol 244(H) 120.0 - 200.0 mg/dl [facility] Triglycerides 199 0.0 - 250.0 mg/dl [facility] HDL Cholesterol 44 >40 mg/dl [facility] LDL Calculated 160.2 mg/dl [facility] Chol HDL Ratio 5.5 [facility] Comment Lipid [facility] Comment: Risk Classification HDL CHOL LDL CHOL TOTAL CHOL According to NCEP (mg/dl) (mg/dL) (mg/dl) Desirable >40 <130 < 200 Borderline/High - 130-159 200-239 High - >159 > 239 The total cholesterol to HDL cholesterol ratio may be used to predict risk for coronary heart disease in untreated patients according to data reported from the [place]vinson Study by Ashutosh Gunn M.D. The predictive value in patients over 60 years of age is uncertain. Risk TOTAL CHOL/HDL RATIO MEN WOMEN 1/2 Average 3.43 3.27 Average 4.97 4.44 2X Average 9.55 7.05 3X Average 23.39 11.04 In Coronary Artery Disease patients, in whom nonpharmacological therapy has failed, the AHA recommends that drug therapy should be prescribed to lower LDL cholesterol to <100mg/dL. Drug therapy may be instituted in patients with HDL <35mg/dL. The reported LDL is a calculated result. For a more precise measurement, a direct LDL test is available, as necessary. BLOOD SPECIMEN / Unknown 07/17/2009 5:52 PM CDT 07/17/2009 5:52 PM CDT us Cristobal Mcqueen MD LAB - CHEMISTRY ORDERABLE S Final Result [facility] [id number] [place] [address] from Last 3 Months or Most Recently Relevant to [place] [address] ANTH Care Teams Policy Specialist Relationship Specialty Start Date End Date Aquiles Conrad MD [facility] [facility] [place] [place] [address] PCP - General Family Medicine 05/12/11
--- OUTSIDE RECORDS SUMMARY | 2024-11-16 13:15 | XMS_ITS | Clinical Summary ---
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 Gender Identity Not on file Sexual Orientation Not on file Plan of Treatment Health Maintenance Due Date Last Done Comments DTAP/TDAP/TD VACCINES (1 - Tdap) 1994 HEPATITIS B VACCINES (1 of 3 - 19+ 3-dose series) 1994 HPV/Cotest (21-29) 1996 HPV/Cotest (30-65) 2005 COLORECTAL SCREENING 2020 Colorectal Cancer Screening 2020 FIT-DNA Q 3 years 2020 FIT/FOBT Q 1 year 2020 Flex Sig/CT Colonography Q 5 years 2020 BREAST CANCER SCREENING 11/02/2021 11/03/19 21, 11/02/2020, 11/21/2019, Additional history exists CERVICAL CANCER SCREENING 10/16/2023 PAP SMEAR 10/16/2023 10/15/2020, 06/05/2019, 05/26/2018, Additional history exists INFLUENZA VACCINE (#1) 2024 Care Teams Audiovisual Librarian Relationship Specialty Start Date End Date Omar Pierce MD PCP - General Obstetrics and Gynecology 12/04/19
[2024-11-16 13:43] LABS: Hematocrit 35.9 % (37.0-47.0); Hemoglobin 12.1 g/dL (12.0-15.0); Mean Corpuscular HGB Conc 33.7 g/dl (32-36); Mean Corpuscular Hemoglobin 32.1 pg (26-34); Mean Corpuscular Volume 95.2 fl (80-100); Platelet Count Result 218 k/mm3 (150-375); Red Blood Count 3.77 M/mm3 (4.2-5.4); White Blood Count 4.7 K/mm3 (4.5-10.0)
[2024-11-16 14:05] LABS: Alanine Aminotransferase 15 U/L (6-35); Albumin Level 4.2 g/dL (3.5-5.1); Alkaline Phosphatase 50 U/L (38-126); Anion Gap 8 mmol/L (4-12); Aspartate Amino Transferase 25 U/L (14-36); Bilirubin,Total 0.4 mg/dL (0.2-1.3); Blood Urea Nitrogen 18 mg/dL (7-17); Calcium 9.0 mg/dL (8.4-10.2); Carbon Dioxide 27 mmol/L (22-30); Chloride 105 mmol/L (98-107); Estimated Glomerular Filt Rate > 60; Glucose 81 mg/dL (65-110); Iron 116 ug/dL (37-170); Potassium 4.0 mmol/L (3.4-5.0); Sodium 140 mmol/L (137-145); Total Protein 7.4 g/dL (6.3-8.2)
[2024-11-16 14:48] LABS: Ferritin 42.90 ng/mL (6.24-137)
[2024-11-16 15:16] LABS: Vitamin B12 991.0 pg/mL (239-931)
[2024-11-16 18:05] LABS: Thyroid Stimulating Hormone Reflex 1.290 uIU/mL (0.465-4.68)
[2024-11-17 07:09] LABS: FSH 5.9 mIU/mL (.); LH 4.9 mIU/mL (.)
[2024-11-23 22:07] LABS: Vit. B1, Whole Blood 109.0 nmol/L (66.5-200.0)
== END 2024-11-16 13:10 | disposition home or self-care (01) ==
PROVIDERS: PCP Family Medicine; Visit Provider Obstetrics & Gynecology
DX: N95.1 Menopausal and female climacteric states (principal); R63.4 Abnormal weight loss; R61 Generalized hyperhidrosis; E66.01 Morbid (severe) obesity due to excess calories; D64.9 Anemia, unspecified; K91.2 Postsurgical malabsorption, not elsewhere classified; Z98.84 Bariatric surgery status; Z13.818 Encounter for screening for other digestive system disorders
CPT/HCPCS: 36415; 80053; 82306; 82607; 82728; 82746; 83001; 83002; 83540; 84425; 84443; 85027

== ENCOUNTER 2025-03-29 14:17 | Outpatient (CLI) | payer BC, SELFPAY ==
--- NOTE | ~2025-03-29 | MM_ITS ---
EXAMINATION: MM screening maxime BI w breana HISTORY: Screening TECHNIQUE: Craniocaudal and mediolateral oblique 3-D tomosynthesis images were obtained and synthetic 2-D images were generated. CAD analysis was submitted and interpreted. COMPARISON: Comparison to multiple prior studies sequentially, with oldest reviewed study dated 01/20/2022. BREAST PARENCHYMAL COMPOSITION: Not dense: There are scattered areas of fibroglandular density. FINDINGS: There are developing asymmetries centered in the upper outer quadrant of both breasts, middle-posterior depth. There are no suspicious calcifications. No skin thickening. IMPRESSION: 1. Bilateral breast asymmetries. 2. Additional mammographic views and possible breast ultrasound are recommended. BI-RADS Category 0: Incomplete: Needs additional imaging evaluation. Reviewed, dictated and finalized at location O. R GENERATION TECHNICIAN IMPRESSION: 1. Bilateral breast asymmetries. 2. Additional mammographic views and possible breast ultrasound are recommended . BI-RADS Category 0: Incomplete: Needs additional imaging evaluation.
== END 2025-03-29 14:18 | disposition home or self-care (01) ==
LOC: MICIMG 14:18
PROVIDERS: PCP Family Medicine; Visit Provider Obstetrics & Gynecology
DX: Z12.31 Encounter for screening mammogram for malignant neoplasm of breast (principal); R92.8 Other abnormal and inconclusive findings on diagnostic imaging of breast
CPT/HCPCS: 77063; 77067